=== PATIENT | male | born 1975 | race Hispanic/Latino ===

== ENCOUNTER 2017-07-28 00:23 | Emergency (ER) | payer SELFPAY ==
[~2017-07-28] VITALS: Ht 180.3 cm; Wt 86.5 kg
[~2017-07-28 00:23] MED LIST: ALBUTEROL SULF8.5 GM IH; AZITHROMYCIN250 MG1 PO; EMVERM100 MG PO; PREDNISONE20 MG PO; SUBOXONE 4 MG-1 EACH SL
[2017-07-28 03:05] LABS: HEMATOCRIT 45.8 % (38.0-50.0); MCH 30.2 PG (29.0-34.0); MCHC 34.5 G/DL (30.0-36.0); MCV 87.4 FL (86-99); MEAN PLAT.VOLUME 10.1 uM^3 (9.0-12.4); PLATELET COUNT 270 K/uL (156-360); RBC DIS.WIDTH-CV 11.9 % (11.8-14.6); RBC DIS.WIDTH-SD 38.4 % (39-53); RED BLOOD COUNT 5.24 M/uL (4.00-5.50); WHITE BLOOD COUNT 9.2 K/uL (4.1-10.2)
[2017-07-28 03:18] LABS: CHLORIDE 106 mEq/L (99-109); POTASSIUM 3.7 mEq/L (3.7-5.4); SODIUM 137 mEq/L (136-147)
[2017-07-28 03:20] LABS: GLUCOSE 102 mg/dL (70-99)
[2017-07-28 03:21] LABS: ANION GAP 9 MEQ/L (2-14)
[2017-07-28 03:24] LABS: GFR ESTIMATE (CALCULATED) > 59 mL/min/ (58.99-99999)
[2017-07-28 03:25] LABS: UREA NITROGEN (BUN) 11 mg/dL (9-23)
[2017-07-28] MEDS ORDERED: PERCOCET 5/31 TABLET PO (04:38)
[2017-07-28] MEDS ORDERED: NAPROXEN500 MG PO (04:38)
[2017-07-28 05:16] VITALS: BP 190/128
== END 2017-07-28 05:16 | disposition home or self-care (01) ==
LOC: EXP 00:23 → EME 00:23 → EXP 05:16
PROVIDERS: Physician Assistant
DX: S12.600A Unspecified displaced fracture of seventh cervical vertebra, initial encounter for closed fracture (principal); W13.8XXA Fall from, out of or through other building or structure, initial encounter; Y92.008 Other place in unspecified non-institutional (private) residence as the place of occurrence of the external cause; S12.001A Unspecified nondisplaced fracture of first cervical vertebra, initial encounter for closed fracture; S09.90XA Unspecified injury of head, initial encounter; Z87.891 Personal history of nicotine dependence
CPT/HCPCS: 70450; 72125; 72128; 80048; 85027; 99281; 99285; J1885; J3010; J8540